=== PATIENT | male | born 1990 | race Caucasian/White ===

== ENCOUNTER 2018-12-05 08:37 | Outpatient (REF) | payer MEDICAID, SELFPAY ==
[2018-12-05 20:02] LABS: Calculated LDL 111 mg/dL; Cholesterol 164 mg/dL (50-200); Glucose 85 mg/dL (70-100); HDL Cholesterol 41 mg/dL (40-60); TSH 3.42 uIU/mL (0.36-3.74); Triglyceride 62 mg/dL (30-150)
== END 2018-12-05 08:57 ==
LOC: NCHCN 08:37
PROVIDERS: PCP Nurse Practitioner Family; Visit Provider Nurse Practitioner Family
DX: R63.5 Abnormal weight gain (principal); R73.9 Hyperglycemia, unspecified; Z13.220 Encounter for screening for lipoid disorders
CPT/HCPCS: 80061; 82947; 84443

== ENCOUNTER 2020-12-16 10:56 | Outpatient (REF) | payer MEDICAID, SELFPAY ==
[2020-12-18 15:01] LABS: COVID-19 RT-PCR UVMMC Result Negative (Negative)
== END 2020-12-16 10:57 | disposition home or self-care (01) ==
LOC: NCHCN 10:56
PROVIDERS: PCP Nurse Practitioner Family; Visit Provider Physician Assistant
DX: Z20.822 Contact with and (suspected) exposure to COVID-19 (principal)
CPT/HCPCS: U0003

== ENCOUNTER 2022-12-14 13:40 | Outpatient (REF) | payer MEDICAID, SELFPAY ==
[2022-12-14 19:42] LABS: Hemoglobin A1C 5.1 % (<5.7)
[2022-12-14 20:17] LABS: ALT 36 U/L (16-63); AST 20 U/L (15-37); Albumin 3.8 g/dL (3.4-5.0); Alkaline Phosphatase 49 U/L (46-116); Anion Gap 9.5 mmol/L (3-11); BUN 20 mg/dL (7-18); Bilirubin, Total 0.4 mg/dL (0.2-1.0); CO2 26.5 mmol/L (21.0-32.0); Calcium 9.3 mg/dL (8.5-10.1); Calculated LDL 144 mg/dL (<100); Chloride 108 mmol/L (98-107); Cholesterol 203 mg/dL (<200); Estimated GFR 103.84 (mL/min/1.73m2); Glucose 84 mg/dL (74-106); HDL Cholesterol 42 mg/dL (40-60); Potassium 3.9 mmol/L (3.5-5.1); Sodium 144 mmol/L (136-145); TSH (W/Ref FT4) 5.29 uIU/mL (0.36-3.74); Total Protein 7.5 g/dL (6.4-8.2); Triglyceride 87 mg/dL (<150)
[2022-12-14 21:11] LABS: FREE T4 0.86 ng/dL (0.76-1.46)
== END 2022-12-14 13:41 | disposition home or self-care (01) ==
LOC: NCHCN 13:40
PROVIDERS: PCP Nurse Practitioner Family; Visit Provider Physician Assistant
DX: E66.01 Morbid (severe) obesity due to excess calories (principal); F41.9 Anxiety disorder, unspecified; Z83.3 Family history of diabetes mellitus; E78.5 Hyperlipidemia, unspecified
CPT/HCPCS: 80053; 80061; 83036; 84439; 84443

== ENCOUNTER 2023-06-14 11:04 | Outpatient (REF) | payer MEDICAID, SELFPAY ==
[2023-06-14 19:00] LABS: TSH (W/Ref FT4) 5.11 uIU/mL (0.36-3.74)
[2023-06-14 19:26] LABS: FREE T4 0.77 ng/dL (0.76-1.46)
== END 2023-06-14 11:05 | disposition home or self-care (01) ==
LOC: NCHCN 11:04
PROVIDERS: PCP Nurse Practitioner Family; Visit Provider Physician Assistant
DX: E03.9 Hypothyroidism, unspecified (principal)
CPT/HCPCS: 84439; 84443

== ENCOUNTER 2023-07-27 13:09 | Outpatient (REF) | payer MEDICAID, SELFPAY ==
[2023-07-27 22:28] LABS: TSH (W/Ref FT4) 4.32 uIU/mL (0.36-3.74)
[2023-07-27 22:54] LABS: FREE T4 0.77 ng/dL (0.76-1.46)
== END 2023-07-27 13:10 | disposition home or self-care (01) ==
LOC: NCHCN 13:09
PROVIDERS: PCP Nurse Practitioner Family; Visit Provider Internal Medicine
DX: E03.9 Hypothyroidism, unspecified (principal)
CPT/HCPCS: 84439; 84443

== ENCOUNTER 2023-09-07 09:51 | Outpatient (REF) | payer MEDICAID, SELFPAY ==
--- OUTSIDE RECORDS SUMMARY | 2023-09-07 10:39 | XMS_ITS | Referral Summary ---
Author Organization [facility] Address [address] [place] [address] Care Team Providers Care Electric Cell Tender Name Role Phone Rocky Oglesby MD Primary Care Provider Unavail able Social History Tobacco Use Types Packs/Day Years Used Date Smoking Tobacco: Never Assessed Sex and Gender Information Value Date Recorded Sex Assigned at Not on file Gender Identity Not on file Sexual Orientation Not on file Plan of Treatment Not on file Care Teams Electric Cell Tender Relationship Specialty Start Date End Date Rocky Oglesby MD PCP - General 12/22/14
--- OUTSIDE RECORDS SUMMARY | 2023-09-07 10:39 | XMS_ITS | Clinical Summary ---
Author Organization [facility] Address [address] [place] [address] Care Team Providers Care Vending Mechanic Name Role Phone Rocky Oglesby MD Primary Care Provider Unavail able Social History Tobacco Use Types Packs/Day Years Used Date Smoking Tobacco: Never Assessed Sex and Gender Information Value Date Recorded Sex Assigned at Not on file Gender Identity Not on file Sexual Orientation Not on file Plan of Treatment Health Maintenance Due Date Last Done Comments Hepatitis C Screen 1992 Hepatitis B Vaccine (1 of 3 - 19+ 3-dose series) 05/13 COVID-19 Vaccine ( season) 2022 Care Teams Vending Mechanic Relationship Specialty Start Date End Date Rocky Oglesby MD PCP - General 12/22/14
--- OUTSIDE RECORDS SUMMARY | 2023-09-07 10:39 | XMS_ITS | Encounter Summary ---
Author Organization [facility] Address [address] [place] [address] Care Team Providers Care Assistant Professor Of Sociology Name Role Phone Rocky Oglesby MD Primary Care Provider Unavail able Encounter Details Date Type Department Care Team (Late st Contact Info) Description 12/17/2020 Lab Requisition [facility] Pathology & Laboratory Medicine - [address] [address] Outr Resulting Lab, Provider Social History Tobacco Use Types Packs/Day Years Used Date Smoking Tobacco: Never Assessed Sex and Gender Information Value Date Recorded Sex Assigned at Not on file Gender Identity Not on file Sexual Orientation Not on file documented as of this encounter Plan of Treatment Not on file documented as of this encounter Procedures Procedure Name Priority Date/Time Associated Diagnosis Comments ZZCOVID-19 TEST [facility] PCR Today 12/16/2020 16:30 EDT COVID-19 TESTING Routine 12/16/2020 16:3 0 EDT documented in this encounter Results * COVID-19 TEST [facility] PCR (12/16/2020 16:30 EDT) Swab ENTIRE NASOPHARYNX / Unknown 12/16/2020 16:30 EDT 12/17/2020 16:04 EDT Provider Outr Resulting Lab MICROBIOLOGY - GENERAL ORDERABLES [facility] [address] [place] [address] * COVID-19 TESTING (12/16/2020 16:30 EDT) COVID-19 rt-PCR Result Negative Negative 12/18/2020 14:56 EDT [facility] Comment: This test has not been FDA cleared or approved. This test has been authorized by FDA under an EUA for use by authorized laboratories. This test has been authorized only for detection of nucleic acid from 2019-nCoV, not for any other viruses or pathogens. This test is only authorized for the duration of the declaration that circumstances exist justifying the authorization of emergency use of in vitro diagnostic tests for detection and/or diagnosis of 2019-nCoV under section 564(b)(1) of Act, 21 U.S.C ?? 360bbb-3(b) (1), unless the authorization is terminated or revoked sooner. Negative results do not preclude 2019-nCoV infection and should not be used as the sole basis for treatment or other patient management decisions. Negative results must be combined with clinical observations, patient history, and epidemiological information. This test was developed and its performance characteristics determined by [facility]. It has not been cleared or approved by the US Food and Drug Administration. FDA does not require this test to go through premarket FDA review. This test is used for clinical purposes. It should not be regarded as investigational or for research. This laboratory is certified under the Clinical Laboratory Improvement Amendments (CLIA) as qualified to perform high complexity clinical laboratory testing. This test is based on the [facility] COVID-19 Emergency Use Authorization (EUA) assay, with minor modification as defined by the FDA Performed on the T[employer] BRAZILo 7 Flex RT-PCR System. Performing Lab [facility] 12/18/2020 14:56 EDT [facility] Swab 12/16/2020 16:3 0 EDT 12/17/2020 16:04 EDT Provider Outr Resulting Lab MICROBIOLOGY - GENERAL ORDERABLES [facility] [address] [place] [address] documented in this encounter Visit Diagnoses Not on filedocumented in this encounter Care Teams Assistant Professor Of Sociology Relationship Specialty Start Date End Date Rocky Oglesby MD PCP - General 12/22/14 documented as of this encounter
[2023-09-07 20:21] LABS: TSH (W/Ref FT4) 2.52 uIU/mL (0.36-3.74)
== END 2023-09-07 09:52 | disposition home or self-care (01) ==
LOC: NCHCN 09:51
PROVIDERS: PCP Nurse Practitioner Family; Visit Provider Physician Assistant
DX: E03.9 Hypothyroidism, unspecified (principal)
CPT/HCPCS: 84443

== ENCOUNTER 2024-01-18 10:44 | Outpatient (REF) | payer MEDICAID, SELFPAY ==
[2024-01-18 20:35] LABS: ALT 38 U/L (16-63); AST 27 U/L (15-37); Albumin 3.8 g/dL (3.4-5.0); Alkaline Phosphatase 54 U/L (46-116); Anion Gap 6.8 mmol/L (3-11); BUN 14 mg/dL (7-18); Bilirubin, Total 0.42 mg/dL (0.2-1.0); CO2 29.2 mmol/L (21.0-32.0); Calcium 9.1 mg/dL (8.5-10.1); Chloride 107 mmol/L (98-107); Estimated GFR 103.19 (mL/min/1.73m2); Glucose 85 mg/dL (74-106); Potassium 4.2 mmol/L (3.5-5.1); Sodium 143 mmol/L (136-145); Total Protein 7.4 g/dL (6.4-8.2)
[2024-01-18 20:54] LABS: FREE T4 0.76 ng/dL (0.76-1.46)
[2024-01-19 20:07] LABS: Hepatitis C Ab w Rflx HCV PCR Negative (Negative)
[2024-01-19 20:11] LABS: HIV-1/2 Ag & Ab Screen Negative (Negative)
== END 2024-01-18 10:45 | disposition home or self-care (01) ==
LOC: NCHCN 10:44
PROVIDERS: PCP Nurse Practitioner Family; Visit Provider Physician Assistant
DX: Z00.00 Encounter for general adult medical examination without abnormal findings (principal); E03.9 Hypothyroidism, unspecified; E78.5 Hyperlipidemia, unspecified
CPT/HCPCS: 80053; 86803; 87389; 84439; 84443

== ENCOUNTER 2024-03-08 09:37 | Outpatient (REF) | payer MEDICAID, SELFPAY ==
--- OUTSIDE RECORDS SUMMARY | 2024-03-08 09:39 | XMS_ITS | Encounter Summary ---
Author Organization [facility] Address [address] [place] [address] Care Team Providers Care Necktie Centralizing Machine Operator Name Role Phone Rocky Oglesby MD Primary Care Provider Unavail able Encounter Details Date Type Department Care Team (Late st Contact Info) Description 12/17/2020 Lab Requisition [facility] Pathology & Laboratory Medicine - [facility] [address] [place] [address] Outr Resulting Lab, Provider Social History Tobacco Use Types Packs/Day Years Used Date Smoking Tobacco: Never Assessed Sex and Gender Information Value Date Recorded Sex Assigned at Not on file Legal Sex Male 18:18 EST Gender Identity Not on file Sexual Orientation Not on file documented as of this encounter Plan of Treatment Not on file documented as of this encounter Procedures Procedure Name Priority Date/Time Associated Diagnosis Comments ZZCOVID-19 TEST [facility] PCR Today 12/16/2020 16:30 EDT COVID-19 TESTING Routine 12/16/2020 16:3 0 EDT documented in this encounter Results * COVID-19 TEST [facility] LAB PCR (12/16/2020 16:30 EDT) Swab ENTIRE NASOPHARYNX / Unknown 12/16/2020 16:30 EDT 12/17/2020 16:04 EDT us Provider Outr Resulting Lab MICROBIOLOGY - GENER AL ORDERABLES Final Result [facility] [address] [place] [address] * COVID-19 TESTING (12/16/2020 16:30 EDT) COVID-19 rt-PCR Result Negative Negative 12/18/2020 14:56 EDT [facility] Comment: This test has not [...] developed and its performance characteristics determined by [facility]. It has not been cleared or approved [...] testing. This test is based on the [facility] COVID-19 Emergency Use Authorization (EUA) assay, with minor modification as defined by the FDA Performed on the TableAppo 7 Flex RT-PCR System. Performing Lab [facility] Lab 12/18/2020 14:56 EDT [facility] Swab 12/16/2020 16:3 0 EDT 12/17/2020 16:04 EDT us Provider Outr Resulting Lab MICROBIOLOGY - GENER AL ORDERABLES Final Result [facility] [address] [place] [address] documented in this encounter Visit Diagnoses Not on filedocumented in this encounter Care Teams Necktie Centralizing Machine Operator Relationship Specialty Start Date End Date Rocky Oglesby MD PCP - General 12/22/14 documented as of this encounter
--- OUTSIDE RECORDS SUMMARY | 2024-03-08 09:39 | XMS_ITS | Encounter Summary ---
Author Organization [facility] Address [address] [place] [address] Care Team Providers Care Fast Food Fry Cook Name Role Phone Rocky Oglesby MD Primary Care Provider Unavail able Encounter Details Date Type Department Care Team (Late st Contact Info) Description 01/19/2024 Lab Requisition [facility] Pathology & Laboratory Medicine - [address] [address] Outr Resulting Lab, Provider Social History Tobacco [...] Procedure Name Priority Date/Time Associated Diagnosis Comments HEPATITIS C AB W REFLEX TO HCV RNA BY PCR Routine 01/18/2024 9:30 EST documented in this encounter Results * HEPATITIS C AB W REFLEX TO HCV RNA BY PCR (01/18/2024 9:30 EST) Hep C Antibody Negative Negative 01/19/2024 20:03 EST [facility] Blood VENOUS BLOOD / Unknown 01/18/2024 9:30 EST 01/19/2024 17:04 EST us Provider Outr Resulting Lab CHEMISTRY & BLOOD GA S ORDERABLES Final Result [facility] [address] [place], [place] [address] documented in this encounter Visit Diagnoses Not on filedocumented in this encounter Care Teams Fast Food Fry Cook Relationship Specialty Start Date End Date Rocky Oglesby MD PCP - General 12/22/14 documented as of this encounter
--- OUTSIDE RECORDS SUMMARY | 2024-03-08 09:39 | XMS_ITS | Referral Summary ---
Author Organization [facility] Address [address] [place] [address] Care Team Providers Care Freight Trucker Name Role Phone Rocky Oglesby MD Primary Care Provider Unavail able Encounters Date Type Department Care Team Description 01/19/2024 Lab Requisition [facility] Pathology & Laboratory [address] [address] Outr Resulting Lab, Provider 01/19/2024 Lab Requisition [facility] Pathology Laboratory [address] [address] Outr Resulting Lab, Provider from Last 3 Months Social History Tobacco Use Types Packs/Day Years Used Date Smoking Tobacco: Never Assessed Sex and Gender Information Value Date Recorded Sex Assigned at Not on file Legal Sex Male 18:18 EST Gender Identity Not on file Sexual Orientation Not on file Plan of Treatment Not on file Procedures Procedure Name Priority Date/Time Associated Diagnosis Comments HIV 1/2 ANTIGEN AND ANTIBODY, 4TH GENERATION Routine 01/18/2024 9:30 EST HEPATITIS C AB W REFLEX TO HCV RNA BY PCR Routine 01/18/2024 9:30 EST from Last 3 Months Results * HEPATITIS C AB W REFLEX TO HCV RNA BY PCR (01/18/2024 9:30 EST) Hep C Antibody Negative Negative 01/19/2024 20:03 EST [facility] Blood VENOUS BLOOD / Unknown 01/18/2024 9:30 EST 01/19/2024 17:04 EST us Provider Outr Resulting Lab CHEMISTRY & BLOOD GA S ORDERABLES Final Result Performing Organization Address [facility]/ZIP Co de Phone Number [facility] [address] [place] [address] * HIV 1/2 ANTIGEN AND ANTIBODY, 4TH GENERATION (01/18/2024 9:30 EST) HIV 1 and 2 Antibody/p24 Antigen, 4th Generation Negative Negative 01/19/2024 20:07 EST [facility] Comment:If acute HIV-1 infec tion is suspected in a high risk patient, submit plasma specimen for HIV-1 RNA quantitation test. Blood VENOUS BLOOD / Unknown 01/18/2024 9:30 EST 01/19/2024 17:04 EST Narrative [facility] - 01/19/2024 20:07 EST Fourth Generation assay performed on the Siemens Centaur XPT. us Provider Outr Resulting Lab IMMUNOLOGY AND SEROL OGY ORDERABLES Final Result [facility] [address] [place], [place] [id number] from Last 3 Months Care Teams Freight Trucker Relationship Specialty Start Date End Date Rocky Oglesby MD PCP - General 12/22/14
--- OUTSIDE RECORDS SUMMARY | 2024-03-08 09:39 | XMS_ITS | Clinical Summary ---
Author Organization [facility] Address [address] [place] [address] Care Team Providers Care Armhole Raiser Lockstitch Name Role Phone Rocky Oglesby MD Primary Care Provider Unavail able Encounters Date Type Department Care Team Description 01/19/2024 Lab Requisition [facility] Pathology & Laboratory [address] [address] Outr Resulting Lab, Provider 01/19/2024 Lab Requisition [facility] Pathology & Laboratory [address] [address] Outr Resulting Lab, Provider from Last 3 Months Social History Tobacco Use Types Packs/Day Years Used Date Smoking Tobacco: Never Assessed Sex and Gender Information Value Date Recorded Sex Assigned at Not on file Legal Sex Male 18:18 EST Gender Identity Not on file Sexual Orientation Not on file Plan of Treatment Health Maintenance Due Date Last Done Comments Hepatitis B Vaccine (1 of 3 - 19+ 3-dose series) 05/13 COVID-19 Vaccine ( season) 2023 Hepatitis C Screen Completed 01/18/2024 Procedures Procedure Name Priority Date/Time Associated Diagnosis Comments HIV 1/2 ANTIGEN AND ANTIBODY, 4TH GENERATION Routine 01/18/2024 9:30 EST HEPATITIS C AB W REFLEX TO HCV RNA BY PCR Routine 01/18/2024 9:30 EST from Last 3 Months Results * HEPATITIS C AB W REFLEX TO HCV RNA BY PCR (01/18/2024 9:30 EST) Hep C Antibody Negative Negative 01/19/2024 20:03 EST [facility] Blood VENOUS BLOOD / Unknown 01/18/2024 9:30 EST 01/19/2024 17:04 EST us Provider Outr Resulting Lab CHEMISTRY & BLOOD GA S ORDERABLES Final Result Performing Organization Address [facility] Co de Phone Number [facility] [address] [place], [place] [id number] * HIV 1/2 ANTIGEN AND ANTIBODY, 4TH GENERATION (01/18/2024 9:30 EST) [facility] HIV 1 and 2 Antibody/p24 Antigen, 4th Generation Negative Negative 01/19/2024 20:07 EST [facility] Comment:If acute HIV-1 infec tion is suspected in a high risk patient, submit plasma specimen for HIV-1 RNA quantitation test. Blood VENOUS BLOOD / Unknown 01/18/2024 9:30 EST 01/19/2024 17:04 EST Narrative [facility] - 01/19/2024 20:07 EST Fourth Generation assay performed on the Siemens Centaur XPT. us Provider Outr Resulting Lab IMMUNOLOGY AND SEROL OGY ORDERABLES Final Result Performing Organization Address City/[facility] Co de Phone Number [facility] [address] [place], [place] [phone] from Last 3 Months Care Teams Armhole Raiser Lockstitch Relationship Specialty Start Date End Date Rocky Oglesby MD PCP - General 12/22/14
--- OUTSIDE RECORDS SUMMARY | 2024-03-08 09:39 | XMS_ITS | Encounter Summary ---
Author Organization [facility] Address [address] [place] [address] Care Team Providers Care Color Room Attendant Name Role Phone Rocky Oglesby MD Primary Care Provider Unavail able Encounter Details Date Type Department Care Team (Late st Contact Info) Description 01/19/2024 Lab Requisition [facility] Pathology & Laboratory Medicine - [address] [address] Outr Resulting Lab, Provider Social History Tobacco [...] ANTIBODY, 4TH GENERATION Routine 01/18/2024 9:30 EST documented in this encounter Results * HIV 1/2 ANTIGEN AND ANTIBODY, 4TH GENERATION (01/18/2024 9:30 EST) HIV 1 and 2 Antibody/p24 Antigen, 4th Generation Negative Negative 01/19/2024 20:07 EST [facility] Comment:If acute HIV-1 infec tion is suspected in a high risk patient, submit plasma specimen for HIV-1 RNA quantitation test. Blood VENOUS BLOOD / Unknown 01/18/2024 9:30 EST 01/19/2024 17:04 EST Narrative [facility] - 01/19/2024 20:07 EST Fourth Generation assay performed on the Siemens Quoforeaur XPT. us Provider Outr Resulting Lab IMMUNOLOGY AND SEROL OGY ORDERABLES Final Result [facility] [address] [place] [id number] documented in this encounter Visit Diagnoses Not on filedocumented in this encounter Care Teams Color Room Attendant Relationship Specialty Start Date End Date Rocky Oglesby MD PCP - General 12/22/14 documented as of this encounter
[2024-03-08 20:15] LABS: TSH (W/Ref FT4) 2.81 uIU/mL (0.36-3.74)
== END 2024-03-08 09:38 | disposition home or self-care (01) ==
LOC: NCHCN 09:37
PROVIDERS: PCP Nurse Practitioner Family; Visit Provider Physician Assistant
DX: E03.9 Hypothyroidism, unspecified (principal)
CPT/HCPCS: 84443

== ENCOUNTER 2024-07-20 14:52 | Outpatient (REF) | payer MEDICAID, SELFPAY ==
[2024-07-20 19:49] LABS: FREE T4 0.77 ng/dL (0.76-1.46); TSH 2.35 uIU/mL (0.36-3.74)
== END 2024-07-20 14:53 | disposition home or self-care (01) ==
LOC: NCHCN 14:52
PROVIDERS: PCP Nurse Practitioner Family; Visit Provider Physician Assistant
DX: E03.9 Hypothyroidism, unspecified (principal)
CPT/HCPCS: 84439; 84443